=== PATIENT | female | born 1960 | race Two or more races ===

== ENCOUNTER 2016-12-20 17:12 | Emergency (ER) | payer MEDICAID ==
[~2016-12-20] VITALS: Ht 154.9 cm; Wt 69.4 kg
[2016-12-20 17:17] VITALS: BP 151/86
[2016-12-20] MEDS ORDERED: HYDROCODONE/APAP 7.5/325MG TABLET. PO ONE (18:00)
[2016-12-20] MEDS ORDERED: HYDR-971 PO (18:23)
--- NOTE | 2016-12-20 18:23 | PHYS DOC ---
Past Medical History Past Medical History: Diabetes-Type II, High Cholesterol, Hypertension Additional Past Medical Histor: Hepatitis C, cataracts Past Surgical History: Other Additional Past Surgical Histo: Partial L foot amputation, facial fractures, abdominal surgery Alcohol Use: None Drug Use: None Adult General Chief Complaint Chief Complaint: WOUND CHECK HPI HPI Patient is a 56 year old female who presents with complaint of left foot pain. The patient has history of diabetes mellitus and peripheral vascular disease. The patient is status post partial left foot amputation with recent formation of a diabetic ulcer near the incision site. Patient has had revision recently at [facility] within the past few months and has been receiving wound care. The patient states that she has been developing pain over the past 2-3 days that has been severe extending along the lateral aspect of her foot and extending up her leg. Patient does admit to history of neuropathy and takes gabapentin. Patient states that her pain feels similar but worse. Patient has not had any redness, lymphangitic streaking, swelling, or fever associated with her symptoms. Patient came to the emergency department secondary to the pain and is asking for medication help with symptoms. Review of Systems Review of Systems Constitutional: Denies fever or chills [] Respiratory: Denies cough or shortness of breath [] Cardiovascular: No additional information not addressed in HPI [] GI: Denies abdominal pain, nausea, vomiting, bloody stools or diarrhea [] : Denies dysuria or hematuria [] Musculoskeletal: Left foot pain [] Integument: Denies rash or skin lesions [] Neurologic: Denies headache, focal weakness or sensory changes [] Current Medications Current Medications Current Medications Medications (Trade) Dose Ordered Sig/[facility] Start Time Stop Time Status Last Admin Dose Admin Acetaminophen/ Hydrocodone Bitart (Lortab 7.5/325) 1 tab 1X ONCE 12/20/16 18:00 12/20/16 18:01 DC 12/20/16 18:07 1 TAB Allergies Allergies Allergies Coded Allergies Type Severity Reaction Last Updated Verified No Known Drug Allergies 12/20/16 No Physical Exam Physical Exam Constitutional: Alert, afebrile, appears in mild to moderate discomfort. [] HENT: Normocephalic, atraumatic, bilateral external ears normal, oropharynx moist, no oral exudates, nose normal. [] Eyes: PERRLA, EOMI, conjunctiva normal, no discharge. [] Neck: Normal range of motion, no tenderness, supple, no stridor. [] Cardiovascular:Heart rate regular rhythm, no murmur [] Lungs & Thorax: Bilateral breath sounds clear to auscultation [] Abdomen: Bowel sounds normal, soft, no tenderness, no masses, no pulsatile masses. [] Skin: Warm, dry, no erythema, no rash. [] Back: No tenderness, no CVA tenderness. [] Extremities: Left foot status post mid foot amputation, 4 cm diabetic ulcer along the volar aspect of left foot with good granulation tissue present, hair present in the wound bed, no purulent discharge, no surrounding erythema or lymphangitic streaking, tenderness to palpation along medial and lateral aspect of the left foot and ankle, no obvious deformity. [] Neurologic: Alert and oriented X 3, normal motor function, normal sensory function, no focal deficits noted. [] Current Patient Data Vital Signs Vital Signs Date Time Temp Pulse Resp B/P Pulse Ox O2 Delivery O2 Flow Rate FiO2 12/20/16 18:07 20 12/20/16 17:17 98.3 83 151/86 98 Room Air 98.3 Lab Values Laboratory Tests Test 12/20/16 17:38 Glucose (Fingerstick) 147mg/dL (70-99) H EKG EKG Not performed [] Radiology/Procedures Radiology/Procedures Two-view left foot x-ray interpreted by me:, No acute bony abnormality, no subcutaneous gas formation, normal alignment Course & Med Decision Making Course & Med Decision Making Pertinent Labs and Imaging studies reviewed. (See chart for details) The patient's fingerstick was 149 here in the emergency department. Patient's vital signs are stable. The patient's wound was cleaned and dressed in the emergency department. The patient's symptoms appear to be consistent with exacerbation of diabetic neuropathy. The patient will be provided with a small prescription of hydrocodone to help for breakthrough pain area patient advised to continue on gabapentin as prescribed with follow-up in 3-5 days a primary doctor. Advised return emergency department for any worsening symptoms. Patient voiced understanding and in agreement with treatment plan. Dragon Disclaimer Dragon Disclaimer This electronic medical record was generated, in whole or in part, using a voice recognition dictation system. Departure Departure Impression: Primary Impression: Diabetic neuropathy Additional Impression: Diabetic ulcer of foot associated with diabetes mellitus due to underlying condition, limited to breakdown of skin Disposition: HOME, SELF-CARE Condition: IMPROVED Patient Instructions: Diabetic Neuropathy, Skin Ulcer Additional Instructions: Follow-up in 3-5 days with her primary doctor. Return to emergency department for any worsening symptoms. Scripts Hydrocodone/Apap 5-325 ([place] 5-325 Tablet)1 Each Tablet1-2 Tab PO Q4-6HRS PRN BREAKTHROUGH PAIN #20 TAB Prov:KATHARINE SAL MD 12/20/16 Problem Qualifiers Primary Impression: Diabetic neuropathy Diabetes mellitus type: type 1 Diabetes mellitus complication detail: diabetic polyneuropathy Qualified Code: E10.42 - Type 1 diabetes mellitus with diabetic polyneuropathy KATHARINE SAL MD Dec 20, 2016 18:23
--- NOTE | 2016-12-21 07:55 | RAD ---
Indication foot pain. AP and lateral views of the left foot were obtained. The patient is status post amputation at the level of the midfoot. There is slight soft tissue swelling. An acute bony finding is not apparent. Definite plain film findings of osteomyelitis are not seen.
== END 2016-12-20 19:10 | disposition home or self-care (01) ==
LOC: ER 17:12
DX: E10.40 Type 1 diabetes mellitus with diabetic neuropathy, unspecified (principal); E10.621 Type 1 diabetes mellitus with foot ulcer; L97.521 Non-pressure chronic ulcer of other part of left foot limited to breakdown of skin; E78.00 Pure hypercholesterolemia, unspecified; I10 Essential (primary) hypertension; Z89.432 Acquired absence of left foot; Z86.19 Personal history of other infectious and parasitic diseases
CPT/HCPCS: 73620; 82947; 99284